=== PATIENT | male | born 1935 | race African-American/Black ===

== ENCOUNTER 2017-01-09 13:16 | Emergency (ER) | payer MEDICARE, OTHER ==
--- NOTE | 2017-01-09 15:05 | RAD ---
FRONTAL VIEW CHEST: Date: 01/09/17 COMPARISON: 11/28/15. INDICATION: Weakness. FINDINGS: There is a right chest port in place. There is newly developed patchy left perihilar opacity. Bilate ral interstitial prominence and hyperinflation of lungs again seen. Cardiomediastinal silhouette is stable. IMPRESSION: Newly developed patchy left perihilar opacity favoring pneumonia. Follow-up to resolution is recomme nded in order to exclude the possibility of an underlying mass. CODE T. POS: [facility]
[2017-01-09 15:07] LABS: #Eosinphils 0.2 thou/uL (0.0-0.7); #Lymphocytes 1.1 thou/uL (1.20-3.40); #Monocytes 0.7 thou/uL (0.11-0.59); #Neutrophils 2.8 thou/uL (1.40-6.50); %Lymphocytes 22.5 % (21.0-51.0); %Monocytes 13.7 % (0.0-10.0); %Neutrophils 58.9 % (42.0-75.0); Hemoglobin 11.9 g/dL (14.0-18.0); Mean Corpuscular HGB CONC 32.2 g/dL (32.0-36.0); Mean Corpuscular Hemoglobin 28.4 pg (27.0-31.0); Mean Corpuscular Volume 88.4 fl (80.0-94.0); Mean Platelet Volume 8.1 fL (7.4-10.4); Platelet Count 173 thou/uL (130-400); RBC Distribution Width 13.1 % (11.5-14.5); Red Blood Cell (RBC) Count 4.18 mill/uL (4.70-6.10); White Blood Cell (WBC) Count 4.7 thou/uL (4.8-10.8)
[2017-01-09 15:11] LABS: INR-International Normal Ratio 0.9; Prothrombin Time 12.7 SEC (12.0-14.7)
[2017-01-09 15:12] LABS: PTT 27.7 SEC (22.9-36.1)
[2017-01-09 15:24] LABS: ALT (SGPT) 21 U/L (8-55); AST (SGOT) 14 U/L (5-34); Albumin 3.9 g/dL (3.4-4.8); Alkaline Phosphatase 82 U/L (40-150); Anion Gap 15 mmol/L (10-20); BUN (Urea Nitrogen) 13 mg/dL (8.4-25.7); Bilirubin, Total 0.3 mg/dL (0.2-1.2); CK (CPK) 16 U/L (30-200); Calc. Creatinine Clearance 0 mL/min (70-130); Calcium 9.7 mg/dL (7.8-10.44); Carbon Dioxide 27 mmol/L (23-31); Chloride 103 mmol/L (98-107); Estimated GFR-MDRD Greater than 90; Globulin 3.8 g/dL (2.4-3.5); Glucose 128 mg/dL (83-110); Potassium 4.3 mmol/L (3.5-5.1); Protein, Total 7.7 g/dL (5.8-8.1); Sodium 141 mmol/L (136-145)
[2017-01-09 15:26] LABS: CKMB 0.4 ng/mL (0-6.6)
[2017-01-09 15:50] LABS: Bilirubin Negative (Negative); Blood, Urine Negative (Negative); Clarity Clear (Clear); Glucose, Urine (Dipstick) Negative (Negative); Leukocyte Negative (Negative); Nitrite Negative (Negative); Protein, Urine (Dipstick) Negative (Neg-Trace)
[2017-01-09 15:52] LABS: RBC/HPF 0-3 HPF (0-3)
[2017-01-09 15:53] LABS: Bacteria/HPF Rare-Few HPF (None Seen); Squamous Epithelial 0-3 HPF (0-3); WBC/HPF None Seen HPF (0-3)
[2017-01-09 16:15] LABS: Troponin I 0.013 ng/mL (< 0.028)
[2017-01-09] MEDS ORDERED: Phenergan/Codeine 10-6.25mg/5ml UDCUP ONE (16:32)
[2017-01-09] MEDS ORDERED: AMOXicillin 250 MG CAP ONE (16:32)
== END 2017-01-09 16:35 | disposition home or self-care (01) ==
LOC: MADERS 13:16
DX: J18.9 Pneumonia, unspecified organism (principal); F17.210 Nicotine dependence, cigarettes, uncomplicated
CPT/HCPCS: 36416; 71010; 80053; 81001; 82553; 83880; 84484; 85025; 85610; 85730; 87040; 87086; 93005; 36415-59

== ENCOUNTER 2017-02-08 12:10 | Emergency (ER) | payer MEDICARE, MEDICAID ==
[~2017-02-08 12:10] MED LIST: Sodium Chloride 0.9% 1,000 ML BAG ONE
[2017-02-08 12:51] LABS: #Basophils 0.1 thou/uL (0.0-0.2); #Eosinphils 0.1 thou/uL (0.0-0.7); #Lymphocytes 1.1 thou/uL (1.20-3.40); #Monocytes 0.7 thou/uL (0.11-0.59); #Neutrophils 3.1 thou/uL (1.40-6.50); %Eosinophils 1.2 % (0.0-10.0); %Lymphocytes 22.6 % (21.0-51.0); %Monocytes 13.2 % (0.0-10.0); Mean Corpuscular HGB CONC 32.6 g/dL (32.0-36.0); Mean Corpuscular Hemoglobin 28.7 pg (27.0-31.0); Mean Platelet Volume 7.3 fL (7.4-10.4); Platelet Count 215 thou/uL (130-400); Red Blood Cell (RBC) Count 3.82 mill/uL (4.70-6.10)
[2017-02-08 12:57] LABS: Prothrombin Time 13.5 SEC (12.0-14.7)
[2017-02-08 12:58] LABS: PTT 31.2 SEC (22.9-36.1)
[2017-02-08 13:11] LABS: ALT (SGPT) 23 U/L (8-55); AST (SGOT) 20 U/L (5-34); Albumin 3.9 g/dL (3.4-4.8); Alkaline Phosphatase 94 U/L (40-150); Anion Gap 17 mmol/L (10-20); BUN (Urea Nitrogen) 11 mg/dL (8.4-25.7); Bilirubin, Total 0.5 mg/dL (0.2-1.2); CK (CPK) 26 U/L (30-200); Calc. Creatinine Clearance 0 mL/min (70-130); Calcium 9.9 mg/dL (7.8-10.44); Carbon Dioxide 24 mmol/L (23-31); Chloride 104 mmol/L (98-107); Estimated GFR-MDRD 85; Globulin 4.4 g/dL (2.4-3.5); Glucose 158 mg/dL (83-110); Magnesium 2.3 mg/dL (1.6-2.6); Potassium 4.9 mmol/L (3.5-5.1); Protein, Total 8.3 g/dL (5.8-8.1); Sodium 140 mmol/L (136-145)
--- NOTE | 2017-02-08 13:12 | RAD ---
PORTABLE CHEST 1 VIEW: DATE: 02/08/17. TIME: 12:34 p.m. HISTORY: Weakness, lung cancer. FINDINGS: Comparison is made with the exam of 01/09/17. Right-sided Port-A-Cath remains in place. The heart size is normal. The aorta is tortuous. The le ft infrahilar mass-like opacity persists and is suspicious for malignancy/metastatic disease given t he history of lung cancer in this patient. No pneumothoraces or pleural effusions are seen. Further evaluation with PET-CT scan is recommended. CODE T POS: [facility]
[2017-02-08 13:17] LABS: CKMB 0.3 ng/mL (0-6.6); Troponin I Less than 0.010 ng/mL (< 0.028)
[2017-02-08 15:35] LABS: Blood, Urine Negative (Negative); Clarity Clear (Clear); Glucose, Urine (Dipstick) Negative (Negative); Leukocyte Negative (Negative); Nitrite Negative (Negative); Protein, Urine (Dipstick) 30 mg/dL (Neg-Trace); Specific Gravity, Urine 1.025 (1.005-1.030); pH, Urine 5.5 (5.0-9.0)
[2017-02-08 15:36] LABS: Bilirubin Negative (Negative); Icto Negative (Negative)
[2017-02-08 15:42] LABS: Bacteria/HPF 1+ HPF (None Seen); RBC/HPF 0-3 HPF (0-3); WBC/HPF 0-3 HPF (0-3)
[2017-02-08 15:43] LABS: Other Casts/LPF 7-10 MIXED CASTS LPF (0-3 Hyaline)
== END 2017-02-08 17:10 | disposition home or self-care (01) ==
LOC: MADERS 12:10
DX: E86.0 Dehydration (principal); R82.71 Bacteriuria; R91.1 Solitary pulmonary nodule; F17.210 Nicotine dependence, cigarettes, uncomplicated; C34.91 Malignant neoplasm of unspecified part of right bronchus or lung; C61 Malignant neoplasm of prostate
CPT/HCPCS: 71010; 80053; 81001; 82553; 83735; 83880; 84443; 84484; 85025; 85610; 85730; 87040; 87081; 87086; 87430; 93005; 94760; 96360; J7050

== ENCOUNTER 2017-02-17 11:22 | Emergency (ER) | payer MEDICARE, MEDICAID ==
[2017-02-17 13:24] LABS: Prothrombin Time 13.5 SEC (12.0-14.7)
[2017-02-17 13:25] LABS: PTT 41.9 SEC (22.9-36.1)
[2017-02-17 13:28] LABS: Hemoglobin A1c 6.4 % (4.0-6.0)
--- NOTE | 2017-02-17 13:28 | RAD ---
SINGLE VIEW OF THE CHEST: COMPARISON: 02/08/17. HISTORY: Weakness and history of [id number] lung cancer. FINDINGS: A single view of the chest shows a normal-sized cardiomediastinal silhouette. There is an opacity s een in the left lower lobe. There is also a developing opacity in the right hilar region. MediPort is unchanged in position. No pleural effusion or new consolidation is seen. IMPRESSION: 1. Mass projecting over the left lower lobe likely represents the patient's known malignancy. 2. The right hilar fullness could represent hilar lymphadenopathy. POS: [facility]
[2017-02-17 13:34] LABS: Band 1 % (5-11); Hemoglobin 10.9 g/dL (14.0-18.0); Lymphocytes 15 % (21-51); MDiff Complete? YES; Mean Corpuscular HGB CONC 32.4 g/dL (32.0-36.0); Mean Corpuscular Hemoglobin 28.4 pg (27.0-31.0); Mean Corpuscular Volume 87.7 fl (80.0-94.0); Mean Platelet Volume 7.6 fL (7.4-10.4); Monocytes 1 % (0-10); Neutrophil 83 % (42-75); PLT Morphology Comment Appears Adequate; Platelet Count 212 thou/uL (130-400); RBC Distribution Width 13.1 % (11.5-14.5); Red Blood Cell (RBC) Count 3.85 mill/uL (4.70-6.10); White Blood Cell (WBC) Count 4.5 thou/uL (4.8-10.8)
[2017-02-17 13:35] LABS: ALT (SGPT) 15 U/L (8-55); AST (SGOT) 16 U/L (5-34); Alkaline Phosphatase 87 U/L (40-150); Anion Gap 15 mmol/L (10-20); BUN (Urea Nitrogen) 24 mg/dL (8.4-25.7); Bilirubin, Total 0.6 mg/dL (0.2-1.2); CK (CPK) 16 U/L (30-200); CRP (Inflammatory) 3.23 mg/dL (= or < 0.5); Calc. Creatinine Clearance 0 mL/min (70-130); Calcium 9.4 mg/dL (7.8-10.44); Carbon Dioxide 22 mmol/L (23-31); Chloride 98 mmol/L (98-107); Estimated GFR-MDRD 89; Glucose 159 mg/dL (83-110); Lipase 25 U/L (8-78); Magnesium 2.2 mg/dL (1.6-2.6); Potassium 4.9 mmol/L (3.5-5.1); Sodium 130 mmol/L (136-145)
[2017-02-17 13:38] LABS: CKMB 0.3 ng/mL (0-6.6); Troponin I Less than 0.010 ng/mL (< 0.028)
[2017-02-17 14:51] LABS: Bilirubin Negative (Negative); Blood, Urine Negative (Negative); Clarity Hazy (Clear); Glucose, Urine (Dipstick) Negative (Negative); Leukocyte Negative (Negative); Nitrite Negative (Negative); Protein, Urine (Dipstick) Negative (Neg-Trace); RBC/HPF 0-3 HPF (0-3); pH, Urine 6.5 (5.0-9.0)
[2017-02-17 14:52] LABS: Bacteria/HPF Rare-Few HPF (None Seen); WBC/HPF 0-3 HPF (0-3)
== END 2017-02-17 15:01 | disposition home or self-care (01) ==
LOC: MADERS 11:22
DX: R53.1 Weakness (principal); R63.0 Anorexia; C61 Malignant neoplasm of prostate; C78.00 Secondary malignant neoplasm of unspecified lung; F17.210 Nicotine dependence, cigarettes, uncomplicated
CPT/HCPCS: 36415; 71010; 80053; 81001; 82150; 82550; 82553; 83036; 83690; 83735; 83880; 84443; 84484; 85025; 85610; 85652; 85730; 86140; 87040; 87086; 93005; J7050

== ENCOUNTER 2017-04-10 20:57 | Emergency (ER) | payer MEDICARE, MEDICAID ==
[~2017-04-10 20:57] MED LIST changes: +Sodium Chloride 0.9% 100 ML BAG ONE; +Sodium Chloride 0.9% 500 ML BAG ONE
--- NOTE | 2017-04-10 21:52 | RAD ---
CHEST ONE VIEW 04/10/17 HISTORY: Dyspnea. Weakness. COMPARISON: 02/17/17 FINDINGS: The cardiac silhouette and pulmonary vasculature are within normal limits. Mediastinum is midline wit h aortic calcification. Right suprahilar and left lower lobe masses appear stable. Right sided Medipo rt remains in place. There is no evidence of pneumothorax. rivet sorter leads overlie the chest. IMPRESSION: Right suprahilar and left lower lobe infiltrate and other findings are stable. No active cardiopulmon reed abnormalities are demonstrated compared to the 02/17/17 exam. POS: [facility]
[2017-04-10 22:31] LABS: Bilirubin Negative (Negative); Blood, Urine Small (Negative); Clarity Clear (Clear); Glucose, Urine (Dipstick) 500 mg/dL (Negative); Leukocyte Negative (Negative); Nitrite Negative (Negative); Protein, Urine (Dipstick) Trace mg/dL (Neg-Trace); Urobilinogen 0.2 mg/dL (0.2-1.0); pH, Urine 5.5 (5.0-9.0)
[2017-04-10 22:31] LABS: Hemoglobin 12.8 g/dL (14.0-18.0); Mean Corpuscular HGB CONC 30.9 g/dL (32.0-36.0); Mean Corpuscular Hemoglobin 30.7 pg (27.0-31.0); Mean Corpuscular Volume 99.4 fl (80.0-94.0); Mean Platelet Volume 7.1 fL (7.4-10.4); Platelet Count 187 thou/uL (130-400); RBC Distribution Width 16.6 % (11.5-14.5); Red Blood Cell (RBC) Count 4.17 mill/uL (4.70-6.10)
--- NOTE | 2017-04-10 22:31 | CT ---
CT HEAD NONCONTRAST 04/10/17 HISTORY: Altered mental status. FINDINGS: There is no evidence of acute intracranial hemorrhage or infarct. Diffuse cortical atrophy and mild c hronic ischemic small vessel disease are apparent. There is no mass effect or shift of midline struct ures. The visualized paranasal sinuses remain well aerated. IMPRESSION: No acute intracranial abnormalities are demonstrated on noncontrast CT head. POS: [facility]
[2017-04-10 22:39] LABS: #Lymphocytes 0.2 thou/uL (1.20-3.40); #Monocytes 0.4 thou/uL (0.11-0.59); #Neutrophils 9.2 thou/uL (1.40-6.50); %Basophils 0.4 % (0.0-1.0); %Lymphocytes 2.2 % (21.0-51.0); %Monocytes 4.1 % (0.0-10.0); %Neutrophils 93.2 % (42.0-75.0); White Blood Cell (WBC) Count 9.9 thou/uL (4.8-10.8)
[2017-04-10 22:41] LABS: Bacteria/HPF Rare-Few HPF (None Seen); Specific Gravity, Urine 1.006 (1.005-1.030); Squamous Epithelial 0-3 HPF (0-3); WBC/HPF 0-3 HPF (0-3)
[2017-04-10 23:01] LABS: CKMB 1.4 ng/mL (0-6.6); Carbon Dioxide 18 mmol/L (23-31); Chloride 96 mmol/L (98-107); Potassium 5.4 mmol/L (3.5-5.1); Sodium 139 mmol/L (136-145)
[2017-04-10 23:02] LABS: Anion Gap 15 mmol/L (10-20); BUN (Urea Nitrogen) 48 mg/dL (8.4-25.7); Calc. Creatinine Clearance 0 mL/min (70-130); Estimated GFR-MDRD 37
[2017-04-10 23:03] LABS: ALT (SGPT) 24 U/L (8-55); AST (SGOT) 12 U/L (5-34); Albumin 4.5 g/dL (3.4-4.8); Alkaline Phosphatase 85 U/L (40-150); Bilirubin, Total 0.5 mg/dL (0.2-1.2); CK (CPK) 63 U/L (30-200); Calcium 11.5 mg/dL (7.8-10.44); Glucose 1066 mg/dL (83-110); Protein, Total 8.5 g/dL (5.8-8.1)
[2017-04-10] MEDS ORDERED: Aspirin 325 MG TAB ONE (23:07)
[2017-04-10 23:37] LABS: Magnesium 2.9 mg/dL (1.6-2.6); Phosphorus 4.5 mg/dL (2.3-4.7)
[2017-04-10] MEDS ORDERED: Insulin Regular 300 UNITS/3 ML VIAL ONE (23:45)
[2017-04-10 23:50] LABS: pH (venous) 7.35 (7.35-7.45)
[2017-04-10 23:51] LABS: Base Excess -5.9 mEq/L (-2 - +2)
[2017-04-10 23:52] LABS: Hemoglobin (Hb) 14.3 g/dL (12.6-17.4)
== END 2017-04-11 00:10 | disposition short-term general hospital (02) ==
LOC: MADERS 20:57
DX: E86.0 Dehydration (principal); E87.0 Hyperosmolality and hypernatremia; R73.9 Hyperglycemia, unspecified; C34.90 Malignant neoplasm of unspecified part of unspecified bronchus or lung; C79.82 Secondary malignant neoplasm of genital organs; C61 Malignant neoplasm of prostate; F17.210 Nicotine dependence, cigarettes, uncomplicated; Z79.899 Other long term (current) drug therapy
CPT/HCPCS: 36415; 36416; 70450; 71010; 80053; 81003; 81015; 82010; 82553; 82805; 83690; 83735; 84100; 84484; 85025; 87040; 87086; 93005; 94760; 96361; 96365; J1815; J7050

== ENCOUNTER 2017-04-26 10:49 | Emergency (ER) | payer MEDICARE, MEDICAID ==
[~2017-04-26 10:49] MED LIST changes: -Sodium Chloride 0.9% 100 ML BAG ONE; -Sodium Chloride 0.9% 500 ML BAG ONE
[2017-04-26 12:14] LABS: #Monocytes 0.1 thou/uL (0.11-0.59); #Neutrophils 3.8 thou/uL (1.40-6.50); %Basophils 0.6 % (0.0-1.0); %Eosinophils 0.3 % (0.0-10.0); %Lymphocytes 19.4 % (21.0-51.0); %Monocytes 2.1 % (0.0-10.0); %Neutrophils 77.6 % (42.0-75.0); Hemoglobin 10.5 g/dL (14.0-18.0); Mean Corpuscular HGB CONC 33.6 g/dL (32.0-36.0); Mean Corpuscular Hemoglobin 30.6 pg (27.0-31.0); Mean Platelet Volume 7.2 fL (7.4-10.4); Platelet Count 136 thou/uL (130-400); RBC Distribution Width 14.8 % (11.5-14.5); Red Blood Cell (RBC) Count 3.43 mill/uL (4.70-6.10); White Blood Cell (WBC) Count 4.9 thou/uL (4.8-10.8)
[2017-04-26 12:26] LABS: Anion Gap 19 mmol/L (10-20); BUN (Urea Nitrogen) 16 mg/dL (8.4-25.7); Calc. Creatinine Clearance 0 mL/min (70-130); Calcium 9.8 mg/dL (7.8-10.44); Carbon Dioxide 19 mmol/L (23-31); Chloride 99 mmol/L (98-107); Estimated GFR-MDRD Greater than 90; Glucose 95 mg/dL (83-110); Potassium 3.6 mmol/L (3.5-5.1); Sodium 133 mmol/L (136-145)
[2017-04-26 13:52] LABS: Bilirubin Negative (Negative); Blood, Urine Negative (Negative); Clarity Slightly Cloudy (Clear); Glucose, Urine (Dipstick) Negative (Negative); Leukocyte Trace (Negative); Nitrite Negative (Negative); Protein, Urine (Dipstick) 30 mg/dL (Neg-Trace); Specific Gravity, Urine 1.015 (1.005-1.030)
[2017-04-26 14:01] LABS: Bacteria/HPF 3+ HPF (None Seen); RBC/HPF 0-3 HPF (0-3)
== END 2017-04-26 14:30 | disposition home or self-care (01) ==
LOC: MADERS 10:49
DX: E86.0 Dehydration (principal); Z87.891 Personal history of nicotine dependence; Z79.899 Other long term (current) drug therapy
CPT/HCPCS: 80048; 81003; 81015; 85025; 96360; 96361; J7050

== ENCOUNTER 2017-05-08 19:34 | Emergency (ER) | payer MEDICARE, MEDICAID ==
[2017-05-08 20:28] LABS: #Basophils 0.1 thou/uL (0.0-0.2); #Lymphocytes 1.8 thou/uL (1.20-3.40); #Monocytes 0.9 thou/uL (0.11-0.59); #Neutrophils 4.4 thou/uL (1.40-6.50); %Basophils 0.7 % (0.0-1.0); %Eosinophils 0.2 % (0.0-10.0); %Lymphocytes 25.2 % (21.0-51.0); %Monocytes 12.4 % (0.0-10.0); %Neutrophils 61.5 % (42.0-75.0); Hemoglobin 9.5 g/dL (14.0-18.0); Mean Corpuscular HGB CONC 33.5 g/dL (32.0-36.0); Mean Corpuscular Hemoglobin 30.7 pg (27.0-31.0); Mean Corpuscular Volume 91.7 fl (80.0-94.0); Mean Platelet Volume 7.5 fL (7.4-10.4); Platelet Count 172 thou/uL (130-400); RBC Distribution Width 15.5 % (11.5-14.5); Red Blood Cell (RBC) Count 3.08 mill/uL (4.70-6.10); White Blood Cell (WBC) Count 7.1 thou/uL (4.8-10.8)
[2017-05-08 20:42] LABS: ALT (SGPT) 21 U/L (8-55); AST (SGOT) 17 U/L (5-34); Albumin 3.5 g/dL (3.4-4.8); Alkaline Phosphatase 51 U/L (40-150); Anion Gap 21 mmol/L (10-20); BUN (Urea Nitrogen) 20 mg/dL (8.4-25.7); Bilirubin, Total 0.6 mg/dL (0.2-1.2); CK (CPK) 24 U/L (30-200); Calc. Creatinine Clearance 0 mL/min (70-130); Calcium 9.3 mg/dL (7.8-10.44); Carbon Dioxide 19 mmol/L (23-31); Chloride 98 mmol/L (98-107); Estimated GFR-MDRD 76; Globulin 3.3 g/dL (2.4-3.5); Glucose 110 mg/dL (83-110); Potassium 3.4 mmol/L (3.5-5.1); Protein, Total 6.8 g/dL (5.8-8.1); Sodium 135 mmol/L (136-145)
[2017-05-08 20:44] LABS: CKMB 0.6 ng/mL (0-6.6); Troponin I Less than 0.010 ng/mL (< 0.028)
[2017-05-08 21:34] LABS: Bilirubin Negative (Negative); Blood, Urine Negative (Negative); Clarity Slightly Cloudy (Clear); Glucose, Urine (Dipstick) Negative (Negative); Leukocyte Negative (Negative); Nitrite Negative (Negative); Protein, Urine (Dipstick) 100 mg/dL (Neg-Trace); Specific Gravity, Urine 1.025 (1.005-1.030); Urobilinogen 0.2 mg/dL (0.2-1.0)
[2017-05-08 21:37] LABS: Bacteria/HPF Rare-Few HPF (None Seen); Crystals/HPF 1+ AMORPH URATES HPF (Negative); RBC/HPF 0-3 HPF (0-3); Squamous Epithelial 0-3 HPF (0-3); Transitional Epithelial 0-3 HPF (0-3)
--- NOTE | 2017-05-08 22:30 | RAD ---
AP VIEW CHEST 05/08/17 HISTORY: Cough. Comparison made to previous exam from 04/28/17. AP view chest demonstrates a right subclavian Mediport catheter in place. Area of soft tissue density seen in the left mid to lower lung. No evidence of acute fracture seen. There appears to be some sca rring and possible right paratracheal mass and spiculation. No significant evidence of acute interval changes seen. IMPRESSION: Left mid to lower lobe lung parenchymal spiculated density as well as right paratracheal spiculation compatible with possible area of malignancy or scar. No evidence of significant interval changes seen since the previous comparison radiograph from ten days earlier. POS: [facility]
== END 2017-05-08 22:29 | disposition short-term general hospital (02) ==
LOC: MADERS 19:34
DX: E87.2 Acidosis (principal); E86.0 Dehydration; R74.0 Nonspecific elevation of levels of transaminase and lactic acid dehydrogenase [LDH]; D64.9 Anemia, unspecified; C34.90 Malignant neoplasm of unspecified part of unspecified bronchus or lung; C61 Malignant neoplasm of prostate; Z87.891 Personal history of nicotine dependence; Z79.899 Other long term (current) drug therapy
CPT/HCPCS: 51701; 71010; 80053; 81003; 81015; 82550; 82553; 83605; 84484; 85025; 87040; 87086; 93005; 96360; 96361; J7050

== ENCOUNTER 2017-05-26 22:31 | Emergency (ER) | payer MEDICARE, MEDICAID ==
[~2017-05-26 22:31] MED LIST changes: +Sodium Chloride 0.9% 100 ML BAG ONE
--- NOTE | 2017-05-26 23:28 | RAD ---
AP CHEST: Indication: History of cough, wheezing, and dehydration. FINDINGS: The chronic right paramediastinal opacity may be a sequella of prior radiation therapy, similar. The left infrahilar hilar nodular opacity is stable. COPD changes are similar. Right chest wall port is u nchanged. Heart size is within normal limits. Pulmonary vascular is within normal limits. There are v ascular calcifications involving the aortic arch. Calcified granulomata in the left upper lobe is sim ilar. Chronic osseous changes are similar. IMPRESSION: No acute cardiopulmonary abnormality. Stable chronic findings as above. POS: [facility]
[2017-05-26] MEDS ORDERED: Piperacillin/Tazobactam 3.375 GM VIAL ONE (23:55)
[2017-05-27 00:05] LABS: ALT (SGPT) 12 U/L (8-55); AST (SGOT) 24 U/L (5-34); Albumin 3.6 g/dL (3.4-4.8); Alkaline Phosphatase 46 U/L (40-150); Anion Gap 19 mmol/L (10-20); BUN (Urea Nitrogen) 15 mg/dL (8.4-25.7); Bilirubin, Total 0.5 mg/dL (0.2-1.2); Calc. Creatinine Clearance 0 mL/min (70-130); Calcium 9.6 mg/dL (7.8-10.44); Carbon Dioxide 20 mmol/L (23-31); Chloride 99 mmol/L (98-107); Estimated GFR-MDRD Greater than 90; Globulin 3.5 g/dL (2.4-3.5); Glucose 156 mg/dL (83-110); Potassium 3.7 mmol/L (3.5-5.1); Protein, Total 7.1 g/dL (5.8-8.1); Sodium 134 mmol/L (136-145)
[2017-05-27 00:11] LABS: CKMB 0.5 ng/mL (0-6.6); Troponin I 0.016 ng/mL (< 0.028)
[2017-05-27 00:29] LABS: Bilirubin Negative (Negative); Blood, Urine Trace (Negative); Clarity Clear (Clear); Glucose, Urine (Dipstick) Negative (Negative); Leukocyte Negative (Negative); Nitrite Negative (Negative); Protein, Urine (Dipstick) 100 mg/dL (Neg-Trace); Specific Gravity, Urine 1.015 (1.005-1.030)
[2017-05-27 00:33] LABS: Hemoglobin 8.5 g/dL (14.0-18.0); Mean Corpuscular HGB CONC 34.1 g/dL (32.0-36.0); Mean Corpuscular Hemoglobin 31.2 pg (27.0-31.0); Mean Corpuscular Volume 91.6 fl (80.0-94.0); Mean Platelet Volume 8.3 fL (7.4-10.4); Platelet Count 179 thou/uL (130-400); RBC Distribution Width 15.6 % (11.5-14.5); Red Blood Cell (RBC) Count 2.74 mill/uL (4.70-6.10); White Blood Cell (WBC) Count 4.2 thou/uL (4.8-10.8)
[2017-05-27 00:34] LABS: MDiff Complete? YES
[2017-05-27 00:35] LABS: Band 10 % (5-11); Blast 1 % (0-0); Delete Auto Diff?? YES; Lymphocytes 15 % (21-51); Monocytes 2 % (0-10); Neutrophil 70 % (42-75)
[2017-05-27 00:36] LABS: Hypochromia MODERATE=16-30 cells (100X) (0-5/hpf); Poikilocytosis SLIGHT = 6-15 cells (100X) (0-5/hpf); Target Cells MODERATE= 6-15 cells (100X) (0-1/hpf)
[2017-05-27 00:38] LABS: Bacteria/HPF Rare-Few HPF (None Seen); Renal Epithelial 0-3 HPF (0-3); Squamous Epithelial 0-3 HPF (0-3); Transitional Epithelial 0-3 HPF (0-3); WBC/HPF 0-3 HPF (0-3)
== END 2017-05-27 00:44 | disposition short-term general hospital (02) ==
LOC: MADERS 22:31
DX: A41.9 Sepsis, unspecified organism (principal); Z87.891 Personal history of nicotine dependence; Z79.899 Other long term (current) drug therapy
CPT/HCPCS: 36415; 36416; 51701; 71045; 80053; 81003; 81015; 82553; 83605; 84484; 85025; 87040; 94760; 96365; J2543; J7050

== ENCOUNTER 2017-07-06 17:39 | Emergency (ER) | payer MEDICARE, MEDICAID ==
[2017-07-06] MEDS ORDERED: HYDROcodone/Acetaminophen 10/325 mg Tablet ONE (18:04)
[2017-07-06] MEDS ORDERED: Naproxen 500 MG TAB ONE (18:04)
--- NOTE | 2017-07-06 19:11 | RAD ---
PORTABLE CHEST: Date: 05/28/17 HISTORY: Fall with left lateral pain. FINDINGS: Heart size is borderline. Right-sided MediPort catheter is present. The mass along the left heart bor rubens is unchanged in appearance since the prior examination. The right hilar and upper lobe parenchyma l changes also appear to be similar. No rib fractures are identified. No signs of pneumothorax. IMPRESSION: Relatively stable chest, persistent prominent right hilar and upper lobe changes, and lingular mass. No definite acute findings. POS: [facility]
== END 2017-07-06 19:21 | disposition home or self-care (01) ==
LOC: MADERS 17:39
DX: S20.212A Contusion of left front wall of thorax, initial encounter (principal); F17.210 Nicotine dependence, cigarettes, uncomplicated; W19.XXXA Unspecified fall, initial encounter
CPT/HCPCS: 71045; 99283

== ENCOUNTER 2017-09-02 16:12 | Emergency (ER) | payer MEDICARE, MEDICAID ==
[~2017-09-02 16:12] MED LIST changes: +Iopamidol 370 76% 100 ML VIAL ONE; -Sodium Chloride 0.9% 1,000 ML BAG ONE; -Sodium Chloride 0.9% 100 ML BAG ONE
[2017-09-02 17:32] LABS: PTT 32.3 SEC (22.9-36.1); Prothrombin Time 13.7 SEC (12.0-14.7)
[2017-09-02 17:42] LABS: #Basophils 0.1 thou/uL (0.0-0.2); #Eosinphils 0.1 thou/uL (0.0-0.7); #Lymphocytes 1.7 thou/uL (1.20-3.40); #Monocytes 0.4 thou/uL (0.11-0.59); #Neutrophils 2.9 thou/uL (1.40-6.50); %Basophils 1.3 % (0.0-1.0); %Eosinophils 2.4 % (0.0-10.0); %Lymphocytes 32.1 % (21.0-51.0); %Monocytes 7.9 % (0.0-10.0); %Neutrophils 56.3 % (42.0-75.0); Hemoglobin 10.3 g/dL (14.0-18.0); Mean Corpuscular HGB CONC 32.4 g/dL (32.0-36.0); Mean Corpuscular Hemoglobin 27.8 pg (27.0-31.0); Mean Corpuscular Volume 85.6 fl (80.0-94.0); Mean Platelet Volume 7.1 fL (7.4-10.4); Platelet Count 241 thou/uL (130-400); RBC Distribution Width 15.6 % (11.5-14.5); Red Blood Cell (RBC) Count 3.73 mill/uL (4.70-6.10); White Blood Cell (WBC) Count 5.1 thou/uL (4.8-10.8)
[2017-09-02 17:58] LABS: Anion Gap 16 mmol/L (10-20); BUN (Urea Nitrogen) 14 mg/dL (8.4-25.7); Calc. Creatinine Clearance 0 mL/min (70-130); Carbon Dioxide 20 mmol/L (23-31); Chloride 107 mmol/L (98-107); Estimated GFR-MDRD Greater than 90; Glucose 91 mg/dL (83-110); Sodium 139 mmol/L (136-145)
[2017-09-02] MEDS ORDERED: Acetaminophen 500 MG TAB ONE (19:50)
[2017-09-02] MEDS ORDERED: HYDROcodone/Acetaminophen 5/325 mg Tablet ONE (19:50)
[2017-09-02] MEDS ORDERED: Acetaminophen 325 MG TAB ONE (19:57)
--- NOTE | 2017-09-02 21:35 | CT ---
CHEST CT WITH CONTRAST ABDOMEN AND PELVIS CT WITH CONTRAST 09/02/17 Exam performed in the Emergency Department for pain. Patient has known history of lung malignancy. FINDINGS: Redemonstration of necrotic lingular mass as well as right paramediastinal interstitial opacification which likely relates at least in part to sequela from radiation pneumonitis. There is consolidative opacification of the right lower lobe redemonstrated, which is ill-defined in morphology. Ill-defined increased density of the right hilum remains. No adrenal mass. No hydronephrosis of the kidneys. No focal hepatic or splenic lesion is seen. No per ipancreatic inflammation. There is diffuse atherosclerosis. No pneumoperitoneum or ascites of abdomen /pelvis. There is wall prominence of the urinary bladder. Correlate with urinary laboratory values. H eterogeneity and prominence of the prostate gland is present which does abut the urinary bladder base . There is generalized heterogeneous density of the osseous structures. Probable pathologic compressi on deformity is seen at the first nonribbearing lumbar segment deemed L1 on the basis of this exam. T here is a transitional lumbosacral segment. Redemonstration of previously discussed right rib deformities. There is a right chest port in place. IMPRESSION: 1. Probable pathologic compression deformity of L1. Recommend followup with whole body bone scan to evaluate for extent of osseous metastatic disease. 2. Redemonstration of malignancy at the lingula which is necrotic in appearance. It is slightly increased in volume, at approximately 3.7 cm. 3. Redemonstration of abnormal soft tissue opacification within the right hilum as well as ill-d efined consolidative abnormality of the right lower lobe which is surrounded by probable postradiatio n pneumonitis in a right medial, paramediastinal location of the right lung. Correlate clinically. POS: [facility]
--- NOTE | 2017-09-02 21:51 | CT ---
LUMBAR SPINE CT 09/02/17 INDICATION: Lumbar fracture. History of malignancy. FINDINGS: There is a mild to moderate compression deformity of L1 as is described on concurrent chest, abdomen and pelvis CT. As is discussed on concurrent exam there is a transitional lumbosacral segment. Due to the technique of the exam, there is limited evaluation of the vertebral canal contents at the L1 lev el. Diffuse abnormal density of the compressed L1 segment favors a pathologic compression fracture. T here are subtle areas of increased density within the remaining lumbar segments, nonspecific. No pallavi tional compression deformities of the lumbar spine are evident. There is multilevel gas vacuum phenom enon, with end plate degenerative change and disc space narrowing. Incidental note of patchy sclerosis of the partially imaged bilateral femoral heads, nonspecific. IMPRESSION: Findings favoring a pathologic compression fracture of L1 with mild to moderate height loss. Evaluati on of contents of vertebral canal are limited in assessment on the basis of the technique this exam. Recommend whole body bone scan for further evaluation of extent of osseous disease. If there are neur ologic deficits, consider followup with lumbar spine MRI, in the absence of contraindications. POS: [facility]
== END 2017-09-02 21:27 | disposition left against medical advice (07) ==
LOC: MADERS 16:12
DX: M84.48XA Pathological fracture, other site, initial encounter for fracture (principal); F17.210 Nicotine dependence, cigarettes, uncomplicated; Z85.46 Personal history of malignant neoplasm of prostate
CPT/HCPCS: 71260; 72131; 74177; 80048; 85025; 85610; 85730

== ENCOUNTER 2018-10-02 02:42 | Emergency (ER) | payer MEDICARE, MEDICAID, OTHER ==
[2018-10-02 03:58] LABS: #Basophils 0.1 thou/uL (0.0-0.2); #Lymphocytes 1.3 thou/uL (1.20-3.40); #Monocytes 0.8 thou/uL (0.11-0.59); #Neutrophils 5.3 thou/uL (1.40-6.50); %Basophils 0.7 % (0.0-1.0); %Eosinophils 0.3 % (0.0-10.0); %Lymphocytes 17.2 % (21.0-51.0); %Monocytes 10.2 % (0.0-10.0); %Neutrophils 71.5 % (42.0-75.0); Hemoglobin 8.2 g/dL (14.0-18.0); Mean Corpuscular HGB CONC 31.9 g/dL (32.0-36.0); Mean Corpuscular Volume 81.5 fL (78.0-98.0); Platelet Count 337 thou/uL (130-400); RBC Distribution Width 14.3 % (11.5-14.5); Red Blood Cell (RBC) Count 3.16 mill/uL (4.70-6.10); White Blood Cell (WBC) Count 7.5 thou/uL (4.8-10.8)
[2018-10-02 04:09] LABS: ALT (SGPT) 14 U/L (8-55); AST (SGOT) 42 U/L (5-34); Albumin 3.3 g/dL (3.4-4.8); Alkaline Phosphatase 102 U/L (40-150); Anion Gap 20 mmol/L (10-20); BUN (Urea Nitrogen) 17 mg/dL (8.4-25.7); Bilirubin, Total 0.7 mg/dL (0.2-1.2); Calc. Creatinine Clearance 0 mL/min (70-130); Calcium 9.7 mg/dL (7.8-10.44); Carbon Dioxide 15 mmol/L (23-31); Chloride 101 mmol/L (98-107); Estimated GFR-MDRD 83; Globulin 4.2 g/dL (2.4-3.5); Glucose 218 mg/dL (83-110); Potassium 4.3 mmol/L (3.5-5.1); Protein, Total 7.5 g/dL (5.8-8.1); Sodium 132 mmol/L (136-145)
[2018-10-02 04:12] LABS: Potassium 4.3 mmol/L (3.5-5.1)
[2018-10-02] MEDS ORDERED: Sodium Chloride 0.9% 250 ML 250 ML ONE ×3 (04:14→05:49)
[2018-10-02 04:34] LABS: Bicarbonate (HCO3v) 15.5 mmol/L (22.0-28.0); CO2 Tension (PvCO2) 25.1 mmHg (40.0-50.0); Calcium, Ionized 1.29 mmol/L (See Comments:); Hemoglobin - Calc 9.8 g/dL (14.0-18.0); O2 Tension (PvO2) 163.3 mmHg (35.0-45.0); T. Carbon Dioxide 16.3 mmol/L (22.0-28.0); pH (Venous) 7.399 (7.320-7.430); vO2 Saturation-calc 99.5 % (60.0-85.0)
[2018-10-02] MEDS ORDERED: Cefepime 2 GM VIAL ONE (05:49)
[2018-10-02] MEDS ORDERED: Sodium Chloride 0.9% 100 ML ONE (05:50)
--- NOTE | 2018-10-02 07:15 | CT ---
CT THORAX WITHOUT CONTRAST: INDICATIONS: History of cough, congestion, shortness of breath, and lung cancer. COMPARISON: Recent chest, abdomen, and pelvis CT dated 09/02/2017. CTA thorax dated 05/28/2017. FINDINGS: There is a mass-like opacity that has worsened, in the region of the lingula, where the previously se en large lingular mass was present. The mass-like prominence now measures 8.1 x 4.2 cm in size, with suggestion of invasion of the mediastinum. There is now a moderate sized pericardial effusion. The re is a moderate left and small right pleural effusion. There is worsening mass-like prominence seen within the right posterior suprahilar region, now measuring 5.5 cm, where previously there were only areas of radiation fibrosis and bronchiectasis. There is worsening suspected hilar adenopathy. The re is worsening post obstructive consolidation involving the superior segment of the right upper lobe . The pleural-based nodule within the right middle lobe is stable, measuring 1.7 cm. There are coronary artery and thoracic aortic calcifications. There is prominent emphysema. The vis ualized adrenal glands appear within normal limits. There is diffuse osteopenia. Mild wedge deepak timothy abnormalities involving T12, T11, T10, and T9 appear stable since the prior exam. The remote ri ght-sided rib fractures appear stable to the prior exam. IMPRESSION: 1. The lack of intravenous contrast limits evaluation of the extent of disease; however, the previou sly seen lingular mass appears to have enlarged in size, now measuring 8.1 x 4.2 cm, with worsening m ediastinal invasion suspected. There has been interval development of a moderate pericardial effusio n, which may be malignant or reactive in nature. 2. Interval development of prominence of the hilar regions bilaterally, suspicious for worsening hil ar lymphadenopathy. There has been development of a prominent right suprahilar mass, now measuring 5 .5 cm, suspicious for either recurrent disease or metastatic lymphadenopathy. There is worsening pos t obstructive consolidation within the superior segment of the right lower lobe. 3. There is moderate left and small right pleural effusion. 4. There is severe emphysema. 5. Pleural-based soft tissue nodule involving the anterior aspect of the right middle lobe is stable . POS: [facility]
== END 2018-10-02 06:41 | disposition short-term general hospital (02) ==
LOC: MADERS 02:42
DX: A41.9 Sepsis, unspecified organism (principal); E87.2 Acidosis; I48.91 Unspecified atrial fibrillation; D64.9 Anemia, unspecified; E87.70 Fluid overload, unspecified; E87.1 Hypo-osmolality and hyponatremia; C34.91 Malignant neoplasm of unspecified part of right bronchus or lung; I31.3 Pericardial effusion (noninflammatory); F17.210 Nicotine dependence, cigarettes, uncomplicated
CPT/HCPCS: 71250; 80053; 82330; 82803; 83605; 83880; 85025; 87040; 93005; 96365; 96375; J0692; J3490; J7050